=== PATIENT | male | born 1990 | race Caucasian/White ===

== ENCOUNTER 2024-04-09 18:40 | Inpatient (IN) | payer OTHER ==
[~2024-04-09] VITALS: Ht 170.2 cm; Wt 91.7 kg
[2024-04-09 20:01] LABS: ANION GAP 12 mmol/L (8-16); CALCIUM, TOTAL 8.9 mg/dL (8.8-10.5); CARBON DIOXIDE 26 mmol/L (22-29); CHLORIDE 99 mmol/L (98-107); CREATININE 0.88 mg/dL (0.60-1.30); GLOMERULAR FILTR. RATE CALC > 60 mL/min (>60); GLUCOSE,RANDOM 94 mg/dL (70-110); POTASSIUM 3.5 mmol/L (3.5-5.1); SODIUM SERUM 137 mmol/L (136-145); UREA NITROGEN, BLOOD 10 mg/dL (7-18)
[2024-04-09 20:05] LABS: BASOPHILS % (AUTO) 0.9 % (0.0-2.0); EOSINOPHILS % (AUTO) 4.7 % (1.0-6.0); HEMOGLOBIN 16.8 g/dL (13.5-17.5); LYMPHOCYTES # (AUTO) 2.1 K/uL (1.0-4.8); LYMPHOCYTES % (AUTO) 32.2 % (22.0-44.0); MEAN CORPUSCULAR HEMOGLOBIN 30.8 pg (26.0-34.0); MEAN CORPUSCULAR HGB CONC 32.8 G/dL (31.0-37.0); MEAN CORPUSCULAR VOLUME 94 fL (80-100); MONOCYTES # (AUTO) 0.8 K/uL (0.1-1.0); MONOCYTES % (AUTO) 12.7 % (2.0-9.0); NEUTROPHILS # (AUTO) 3.2 K/uL (1.8-7.7); NEUTROPHILS % (AUTO) 49.5 % (40.0-70.0); PLATELET COUNT (AUTO) 246 K/uL (150-450); RED BLOOD CELL COUNT(AUTO) 5.45 MIL/uL (4.50-5.90); RED CELL DISTRIBUTION WIDTH 13.5 % (11.5-14.5); WHITE BLOOD COUNT (AUTO) 6.5 K/uL (4.5-11.0)
[2024-04-09 20:08] LABS: ALCOHOL, BLOOD (SERUM) < 3 mg/dL (0-10)
[2024-04-10 03:07] VITALS: BP 121/66; PULSE 71; RESP 20; TEMP 98.1; O2SAT 98
[2024-04-10 08:23] VITALS: BP_SYST 128; BP_DIAS 69; BP_DIAS 79; PULSE 67; RESP 18; TEMP 97.9; O2SAT 98
[2024-04-10] MEDS ORDERED: MAGNESIUM HYDROXIDE SUSPENSION 30 ML UDCUP PO PRN (11:30)
[2024-04-10] MEDS ORDERED: ONDANSETRON HCL 4 MG/2 ML VIAL IVP PRN (11:30)
[2024-04-10] MEDS: SODIUM CHLORIDE 0.9% 1,000 ML IV ONE (12:54)
[2024-04-10 14:08] LABS: COVID AG,FIA SOURCE NASAL SWAB
[2024-04-10 14:17] LABS: APPEARANCE,URINE CLEAR (CLEAR); BILIRUBIN,URINE NEGATIVE (NEGATIVE); COLOR,URINE YELLOW (YELLOW); GLUCOSE, URINE (UA) NEGATIVE (NEGATIVE); KETONES,URINE NEGATIVE (NEGATIVE); LEUKOCYTE ESTERASE ,URINE NEGATIVE (NEGATIVE); NITRATE,URINE NEGATIVE (NEGATIVE); OCCULT BLOOD,URINE NEGATIVE (NEGATIVE); PH,URINE 5.5 (5.0-8.0); PH,URINE DRUG SCREEN 5.5 (5.0-8.0); PROTEIN,URINE TRACE mg/dL (NEGATIVE); SPECIFIC GRAVITIY, URINE 1.028 (1.003-1.030); UROBILINOGEN,URINE <=1.0 mg/dL (<=1.0)
[2024-04-10 14:23] LABS: ALCOHOL, URINE DRUG SCREEN NEGATIVE (NEGATIVE); AMPHET/METH SCREEN,URINE POSITIVE (NEGATIVE); BARBITURATE SCREEN, URINE NEGATIVE (NEGATIVE); BENZODIAZEPINES SCREEN,URINE NEGATIVE (NEGATIVE); CANNABINOID SCREEN,URINE POSITIVE (NEGATIVE); COCAINE SCREEN,URINE NEGATIVE (NEGATIVE); METHADONE SCREEN, URINE NEGATIVE (NEGATIVE); OPIATE SCREEN,URINE NEGATIVE (NEGATIVE); PHENCYCLIDINE SCREEN,URINE NEGATIVE (NEGATIVE)
[2024-04-10 14:31] LABS: SARS-COV2 (COVID) ANTIGEN,FIA Negative (Negative)
[2024-04-10] MEDS: ACETAMINOPHEN 325 MG TABLET PO PRN (18:13)
[2024-04-10 19:47] VITALS: BP 120/79; PULSE 76; RESP 18; TEMP 98; O2SAT 97
[2024-04-11 05:11] VITALS: BP 118/69; PULSE 64; RESP 18; TEMP 97.7; O2SAT 99
[2024-04-11] MEDS: FAMOTIDINE 20 MG TABLET PO SCH (08:29)
[2024-04-11 08:49] VITALS: BP 131/79; PULSE 64; RESP 18; TEMP 97.6; O2SAT 99
[2024-04-11] MEDS: SODIUM CHLORIDE 0.9% 1,000 ML IV ONE (09:31)
[2024-04-11] MEDS: LORazepam 2 MG/ML VIAL IVP PRN ×2 (09:32→14:21)
[2024-04-11 19:42] VITALS: BP 130/75; PULSE 80; RESP 18; TEMP 98.2; O2SAT 98
[2024-04-11] MEDS: ZOLPIDEM TARTRATE 5 MG TABLET PO PRN (21:30)
[2024-04-12 04:35] VITALS: BP 128/73; PULSE 78; RESP 16; TEMP 98.2; O2SAT 97
[2024-04-12 08:06] VITALS: BP 121/81; PULSE 84; RESP 18; TEMP 97.4; O2SAT 98
[2024-04-12] MEDS ORDERED: METOCLOPRAMIDE HCL 5 MG/ML 2 ML VIAL IVP PRN (13:00)
[2024-04-12] MEDS ORDERED: LOPERAMIDE HCL 2 MG CAPSULE PO PRN (13:00)
[2024-04-12] MEDS: DICYCLOMINE HCL 10 MG CAPSULE PO PRN (13:24)
[2024-04-12 16:13] VITALS: BP 131/75; PULSE 74; RESP 18; TEMP 98.1; O2SAT 99
[2024-04-12] MEDS: LORazepam 2 MG/ML VIAL IVP PRN (16:50)
[2024-04-12 20:02] VITALS: BP 134/76; PULSE 77; RESP 18; TEMP 98.1; O2SAT 99
[2024-04-12] MEDS: TEMAZEPAM 15 MG CAPSULE PO SCH (21:22)
[2024-04-13 04:50] VITALS: BP 124/78; PULSE 77; RESP 19; TEMP 97.8; O2SAT 100
== END 2024-04-13 17:47 | DRG 897 ==
LOC: EMS 18:40 → EDH 04-10 02:14 → UNDOADMIN 04-10 02:14 → EDH 04-10 02:20 → 6S 04-10 03:32
PROVIDERS: ADMIT Internal Medicine; ATTEND Internal Medicine
DX: F11.13 Opioid abuse with withdrawal (principal); F15.13 Other stimulant abuse with withdrawal; K74.60 Unspecified cirrhosis of liver; B19.20 Unspecified viral hepatitis C without hepatic coma; G47.00 Insomnia, unspecified; Z20.822 Contact with and (suspected) exposure to COVID-19; F17.210 Nicotine dependence, cigarettes, uncomplicated; F41.9 Anxiety disorder, unspecified; Z79.899 Other long term (current) drug therapy
CPT/HCPCS: 80048; 80307; 81003; 85025; 99285; G0480; J2060; J7030

== ENCOUNTER 2024-06-07 13:08 | Emergency (ER) | payer MEDICAID, OTHER ==
[~2024-06-07] VITALS: Ht 170.2 cm; Wt 93.2 kg
[2024-06-07] MEDS ORDERED: HYDR-3831 PO (13:42)
[2024-06-07] MEDS ORDERED: BUPR1FIL SL (13:42)
[2024-06-07 13:44] VITALS: BP 118/90; PULSE 80; RESP 18; TEMP 98.6; O2SAT 97
[2024-06-07] MEDS ORDERED: ACET-66 PO (14:05)
[2024-06-07] MEDS ORDERED: PENI500T2 PO (14:05)
[2024-06-07] MEDS ORDERED: IBUP-1554 PO (14:05)
[2024-06-07] MEDS ORDERED: BUPR1FIL19 SL (14:11)
[2024-06-07] MEDS: CEPHALEXIN MONOHYDRATE 500 MG CAPSULE PO ONE (14:16)
[2024-06-07] MEDS: IBUPROFEN 600 MG TABLET PO ONE (14:16)
[2024-06-07] MEDS: ACETAMINOPHEN 500 MG TABLET PO ONE (14:16)
== END 2024-06-07 19:00 | disposition home or self-care (01) ==
LOC: EMS 13:08
DX: K04.7 Periapical abscess without sinus (principal); K02.9 Dental caries, unspecified; K74.60 Unspecified cirrhosis of liver; F17.210 Nicotine dependence, cigarettes, uncomplicated; F15.90 Other stimulant use, unspecified, uncomplicated; F11.90 Opioid use, unspecified, uncomplicated
CPT/HCPCS: 99284; Z7502; Z7610

== ENCOUNTER 2024-07-23 10:27 | Emergency (ER) | payer MEDICAID ==
[~2024-07-23] VITALS: Ht 170.2 cm; Wt 93.2 kg
[~2024-07-23 10:27] MED LIST: ACET-66 PO; BUPR1FIL19 SL; HYDR-3831 PO; IBUP-1554 PO; PENI500T2 PO
[2024-07-23] MEDS ORDERED: DOXY100C5 PO (10:32)
[2024-07-23 10:42] LABS: COVID AG,FIA SOURCE NASAL SWAB
[2024-07-23 10:46] LABS: BASOPHILS % (AUTO) 0.9 % (0.0-2.0); EOSINOPHILS % (AUTO) 2.7 % (1.0-6.0); LYMPHOCYTES # (AUTO) 1.6 K/uL (1.0-4.8); LYMPHOCYTES % (AUTO) 26.4 % (22.0-44.0); MEAN CORPUSCULAR HEMOGLOBIN 30.2 pg (26.0-34.0); MEAN CORPUSCULAR HGB CONC 32.6 G/dL (31.0-37.0); MEAN CORPUSCULAR VOLUME 93 fL (80-100); MONOCYTES # (AUTO) 0.4 K/uL (0.1-1.0); MONOCYTES % (AUTO) 6.3 % (2.0-9.0); NEUTROPHILS # (AUTO) 3.8 K/uL (1.8-7.7); NEUTROPHILS % (AUTO) 63.7 % (40.0-70.0); PLATELET COUNT (AUTO) 243 K/uL (150-450); RED BLOOD CELL COUNT(AUTO) 4.96 MIL/uL (4.50-5.90)
[2024-07-23 10:53] LABS: ANION GAP 9 mmol/L (8-16); CALCIUM, TOTAL 8.8 mg/dL (8.8-10.5); CARBON DIOXIDE 26 mmol/L (22-29); CHLORIDE 105 mmol/L (98-107); CREATININE 1.06 mg/dL (0.60-1.30); GLOMERULAR FILTR. RATE CALC > 60 mL/min (>60); GLUCOSE,RANDOM 189 mg/dL (70-110); POTASSIUM 3.7 mmol/L (3.5-5.1); SODIUM SERUM 140 mmol/L (136-145); UREA NITROGEN, BLOOD 10 mg/dL (7-18)
[2024-07-23 10:55] LABS: LIPASE 21 U/L (16-77)
[2024-07-23] MEDS: SODIUM CHLORIDE 0.9% 1,000 ML IV ONE (10:59)
[2024-07-23] MEDS: ONDANSETRON HCL 4 MG/2 ML VIAL IVP ONE (10:59)
[2024-07-23 11:31] LABS: INFLUENZA TYPE A NEGATIVE FOR TYPE A (NEGATIVE); INFLUENZA TYPE B NEGATIVE FOR TYPE B (NEGATIVE)
[2024-07-23 11:53] LABS: SARS-COV2 (COVID) ANTIGEN,FIA Negative (Negative)
[2024-07-23 12:13] VITALS: BP 118/85; PULSE 103; RESP 16; TEMP 98; O2SAT 98
[2024-07-23] MEDS ORDERED: ONDA-104 PO (12:14)
== END 2024-07-23 12:30 | disposition home or self-care (01) ==
LOC: EMS 10:27
DX: R11.2 Nausea with vomiting, unspecified (principal); R19.7 Diarrhea, unspecified; F17.210 Nicotine dependence, cigarettes, uncomplicated; K74.60 Unspecified cirrhosis of liver; Z20.822 Contact with and (suspected) exposure to COVID-19
CPT/HCPCS: 99283; 96374; 96361; 99406; 87426; 80048; 83690; 85025; 87804; 36415; J2405; J7030